=== PATIENT | male | born 1970 | race Caucasian/White ===

== ENCOUNTER 2023-08-23 11:03 | Outpatient (CLI) | payer MEDICARE, SELFPAY ==
--- NOTE | 2023-08-23 11:15 | MR_ITS ---
[address] [address] Phone:?[phone] Fax:?[phone] Referring Physician Information: Edis Ward M.D. [address] [facility] [address] Phone:?[phone] Fax:?[phone] Patient:Shruthi Carlton D.O.B:?1970 Sex:?Male Phone:?[phone] [facility] MRN:?[id number] Exam Date:?08/23/2023 EXAM: MRI OF THE LEFT ANKLE AND HINDFOOT CLINICAL INFORMATION: The patient is a 52-year-old with left ankle and hindfoot pain. Evaluate for peroneal tendon injury. PRIOR SURGERY: None reported. COMPARISON STUDIES: Comparison is made to prior radiographs dated 08/18/2023. TECHNICAL INFORMATION: Imaging was performed on a high-field, 1.5 Alejandra MR scanner. Sagittal proton-density, T2, and STIR imaging of the left ankle and hindfoot was performed in addition to axial proton-density and axial T2 imaging. Coronal proton-density and coronal T2 imaging was also performed. FINDINGS: Osseous structures: Fat-suppressed imaging of the distal tibia and distal fibula shows no evidence for marrow edema or cortical injury. There is no evidence for fracture. No evidence for acute bony injury of the talus or calcaneus can be seen. No acute bony injuries of the midfoot structures are present. There are no definite abnormalities in midfoot alignment. Os trigonum: No os trigonum is identified. No definite MR signs of posterior impingement are seen. Tarsal coalition: No calcaneonavicular, talocalcaneal or cubonavicular coalition is present. Tibiotalar joint: Effusion: Mild to moderate. Ganglion cyst: None. Osteochondral surfaces: No definite chondral or osteochondral injury can be seen along the articular surfaces of the talar dome or tibial plafond. Loose bodies: Low signal intensity debris within the tibiotalar joint can be seen, in keeping with synovitis. Small loose bodies within the joint space cannot be excluded. Subtalar joint: Effusion: Moderate. Low signal intensity debris within the joint space can be seen, in keeping with synovitis. Articular cartilage: No definite chondral or osteochondral abnormality identified. Tarsal joints: Talonavicular: Within normal limits. Calcaneocuboid: Within normal limits. Naviculocuneiform: Within normal limits. Ligamentous structures: Syndesmotic Ligaments: The lateral syndesmotic ligaments appear intact. No widening of the syndesmosis can be seen. Lateral Ligaments: Chronic appearing thickening and irregularity of the anterior talofibular, calcaneofibular, and posterior talofibular ligaments can be seen, in keeping with a prior inversion sprain. No impinging mass within the lateral gutter is present. Medial Ligaments: Chronic residual changes of a prior incomplete deltoid sprain are present and can be seen on coronal series 8 image 18. Spring Ligaments: Intact. Sinus Tarsi: Intact cervical and interosseous ligaments. Flexor tendons: Posterior tibial: Mild to moderate tendinosis and flattening of the posterior tibialis tendon can be seen with mild tenosynovitis. No evidence for well- defined tearing is identified. Flexor digitorum longus: Normal. Flexor hallucis longus: Normal, without convincing pathologic tenosynovitis. Peroneus longus and brevis: There are changes of mild to moderate tendinosis of the peroneus longus and brevis along the posterior and inferior margins of the lateral malleolus with mild tenosynovitis. Surrounding moderate soft tissue edema, hemorrhage, or inflammatory changes can be seen along the lateral aspect of the ankle and hindfoot on sagittal series 5 image 24. No well-defined fluid collections within the adjacent soft tissues can be seen. There is no evidence for peroneal rupture or dislocation. Extensor tendons: Tibialis anterior: Normal, without tendinopathy, tenosynovitis or tear. Extensor hallucis longus: Normal. Extensor digitorum longus: Normal. Achilles tendon: No tendinopathy or tear. Mild retrocalcaneal bursitis. Plantar aponeurosis: No evidence for plantar fasciitis or plantar fascia tearing. Neurovascular structures: No definite neurovascular abnormalities are seen. The tarsal tunnel is within normal limits. CONCLUSION: 1. Tendinosis and tenosynovitis of the peroneus longus and brevis along the posterior and inferior margins of the lateral malleolus. There is adjacent soft tissue edema, hemorrhage, or inflammatory changes along the lateral aspect of the ankle and hindfoot. 2. Effusions of the tibiotalar and subtalar joints with areas of synovitis. 3. No acute bony or osteochondral injuries about the ankle, hindfoot, or midfoot are seen. 4. Chronic appearing sprain injuries of the lateral ligamentous complex and deltoid complex. 5. No neurovascular abnormalities are present. [facility] Electronically signed on 08/23/2023 2:27:00 PM by Forrest Barnes M.D.
== END 2023-08-23 11:04 | disposition home or self-care (01) ==
LOC: MRI 11:05
PROVIDERS: PCP Physician Assistant Medical; Visit Provider Family Medicine
DX: M25.572 Pain in left ankle and joints of left foot (principal); S86.312A Strain of muscle(s) and tendon(s) of peroneal muscle group at lower leg level, left leg, initial encounter; M65.872 Other synovitis and tenosynovitis, left ankle and foot; S93.422A Sprain of deltoid ligament of left ankle, initial encounter
CPT/HCPCS: 73721